=== PATIENT | female | born 1965 | race Caucasian/White ===

== ENCOUNTER 2023-06-07 08:26 | Outpatient (CLI) | payer OTHER, SELFPAY ==
--- NOTE | 2023-06-07 08:45 | CRLHL7_ITS ---
For Patients: As a result of the Century Cures Act, medical imaging exams and procedure reports are released immediately into your electronic medical record. You may view this report before your referring provider. If you have questions, please contact your health care provider. CLINICAL HISTORY: Hematuria COMPARISON: none TECHNIQUE: Pulliam scale and color Doppler images were acquired of the kidneys and urinary bladder. FINDINGS: Sonographic images reveal a symmetric appearance of the kidneys. There is no evidence of hydronephrosis, mass or calculus. The right kidney measures 9.5cm in length and the left kidney measures 9.8cm in length. The renal cortex appears of normal thickness. The urinary bladder appears normal. Color Doppler images reveal a normal appearance of both ureteral jets. There is no evidence of bladder calculi or diverticula. IMPRESSION: Normal renal ultrasound. Dictated by Moy Wong MD @ 06/07/2023 10:21:44 AM (Electronically Signed)
== END 2023-06-07 08:27 | disposition home or self-care (01) ==
PROVIDERS: Visit Provider Nurse Practitioner
DX: N30.01 Acute cystitis with hematuria (principal); R31.29 Other microscopic hematuria
CPT/HCPCS: 76770